=== PATIENT | male | born 1985 | race Caucasian/White ===

== ENCOUNTER 2017-01-22 06:25 | Inpatient (IN) ==
--- NOTE | 2017-01-21 17:13 | Discharge Summary ---
<Corazon Valderrama - Last Filed: 01/21/17 17:09> Date of Encounter: 01/21/17 - Discharge Diagnosis (1) DDH (developmental dysplasia of the hip) Priority: Primary Status: Chronic (2) Osteoarthritis of right hip Priority: Primary Status: Chronic Qualifiers: Osteoarthritis type: resulting from hip dysplasia Qualified Code(s): M16.31 - Unilateral osteoarthritis resulting from hip dysplasia, right hip (3) Hip pain, right Priority: Primary Status: Chronic (4) HTN (hypertension) Priority: Secondary Status: Chronic Qualifiers: Hypertension type: unspecified Qualified Code(s): I10 - Essential (primary ) hypertension (5) Tobacco use Priority: Secondary Status: Chronic - Discharge Medications Home Medications: Aspirin Enteric Coated [Aspirin EC] 325 mg PO DAILY 21 Days #21 tablet. [Rx] OxyCODONE Immed Rel [Roxicodone 5 MG] 5 mg PO Q6HR PRN 7 Days #28 tablet [Rx] Amlodipine Besylate 10 mg PO HS 01/22/17 [History] Losartan/Hydrochlorothiazide [Hyzaar 100-25 Tablet] 1 tab PO HS 01/22/17 [ History] Multivitamin [One Daily Essential] 1 tab PO HS 01/22/17 [History] Allergies/Adverse Reactions: 3 Allergy/AdvReac Type Severity Reaction Status Date / Time No Known Allergies Allergy Verified 01/22/17 06:59 Primary care physician: PCP NONE - Patient Status Disposition: Home Health Service Condition: Good - Discharge Instructions Follow Up With: NONE,PCP [Primary Care Provider] - - Hospital Course Hospital course: Mr. Guerrier is a 32 year old male - Time Spent with Patient Total time spent providing and/or coordinating discharge services: - VTE Documentation of Mechanical Device: Venous foot pump, device <Alistair Benson - Last Filed: 01/23/17 06:20> Date of Encounter: 01/23/17 Time of Encounter: 06:19 - Discharge Diagnosis (1) Morbid obesity with BMI of 40.0-44.9, adult Priority: Secondary Status: Chronic (2) DDH (developmental dysplasia of the hip) Priority: Primary Status: Chronic (3) Osteoarthritis of right hip Priority: Primary Status: Chronic Qualifiers: Osteoarthritis type: resulting from hip dysplasia Qualified Code(s): M16.31 - Unilateral osteoarthritis resulting from hip dysplasia, right hip (4) Hip pain, right Priority: Primary Status: Chronic (5) HTN (hypertension) Priority: Secondary Status: Chronic Qualifiers: Hypertension type: unspecified Qualified Code(s): I10 - Essential (primary ) hypertension (6) Tobacco use Priority: Secondary Status: Chronic (7) Status post total hip replacement, right Priority: Primary Status: Acute Primary care physician: PCP NONE - Patient Status Functional capacity at discharge: uses cane/walker Overall status at discharge: patient is progressing back to baseline - Hospital Course Hospital course: Mr. Guerrier is a 32 year old male Status post right total hip replacement The patient had an uneventful postoperative course. They received antibiotics and physical therapy and were discharged in stable condition. There will follow -up in the office in 2 weeks. - Time Spent with Patient Total time spent providing and/or coordinating discharge services:
--- NOTE | 2017-01-21 17:16 | Physician Discharge Referral ---
Home Health/Hosp Referral Info Transfer to: Home Health Attending Provider: Dr. Alistair Benson - Diagnosis (1) DDH (developmental dysplasia of the hip) Priority: Primary Status: Chronic (2) Osteoarthritis of right hip Priority: Primary Status: Chronic (3) Hip pain, right Priority: Primary Status: Chronic (4) HTN (hypertension) Priority: Secondary Status: Chronic (5) Tobacco use Priority: Secondary Status: Chronic (6) Status post total hip replacement, right Priority: Primary Status: Acute - Respiratory Orders Smoking Cessation: Smoking cessation has been advised. For more information, call the [place] Tobacco Quit Line at 9-953-DZUZ-NOW. - Dressing/Wound Care Site: right hip Type of Dressing/Treatments w/Frequency: Opsite placed. Keep dressing intact until first follow up appointment. If > 50% saturated, notify office, remove dressing and place appropriate dressing back in place. Dressing is water resistant, not water-proof. OK to shower, but do not get dressing wet. - Diet/Nutrition Diet/Nutrition Orders: Regular - Activity Activity: List: Total Hip replacement Precautions Apply cold therapy 3-6x/day for 20 minutes at a time. Encourage ambulation throughout the day and incentive spirometer 10x/hour. Elevate affected extremity as tolerated. Brace: Wear hip abduction pillow when laying/sleeping - Services Needed Following services are medically necessary services: Nursing, Home Health Aide, Physical Therapy, Occupational Therapy - Transfer Medications Prescriptions: OxyCODONE Immed Rel [Roxicodone 5 MG] 5 mg PO Q6HR PRN 7 Days #28 tablet PRN Reason: Pain Aspirin Enteric Coated [Aspirin EC] 325 mg PO DAILY 21 Days #21 tablet. Home Medications: Aspirin Enteric Coated [Aspirin EC] 325 mg PO DAILY 21 Days #21 tablet. [Rx] OxyCODONE Immed Rel [Roxicodone 5 MG] 5 mg PO Q6HR PRN 7 Days #28 tablet [Rx] Certification: Further, I certify that my clinical findings support that this patient is homebound (i.e. absences from home require considerable and taxing effort and are for medical reasons or mormon services or infrequently or short duration when for other reasons) because: Homebound Reason: Post-surgery restriction and or conditions limit ability to leave home Attestation: My signature below is to certify that this patient is under my care and that I, or nurse practitioner, or a physician press assistant and feeder working with me, has a face-to- face encounter with this patient.
[2017-01-22] MEDS ORDERED: Albuterol 2.5 MG/3 ML NEBULIZER ONE (06:40)
--- NOTE | 2017-01-22 06:50 | History & Physical Report ---
Date of Encounter: 01/22/17 Time of Encounter: 06:50 24 Hour HP Update - Instructions Instructions: If the History and Physical is less than 30 days old and was completed prior to A.M. admission and or procedure and has NOT been updated on calendar day of procedure please complete this update prior to performing procedure. - Update Patient reports changes in Medical Condition: No Changes in examination, assessment, or condition: No Changes in Medication: No Preop tests/diagnostics Reviewed: Yes Surgery Remains Indicated: Yes Consent for Planned Operative Procedure(s) Verified: Yes - Pre-Operative Checklist Preoperative Checklist Indicated: No Prophylactic Antibiotic Ordered: Yes Is VTE Prophylaxis Indicated?: Yes
[2017-01-22] MEDS ORDERED: Albuterol 2.5 MG/3 ML NEBULIZER IH ONE (06:53)
[2017-01-22] MEDS ORDERED: CeFAZolin Syr 3,000MG/30 ML 3,000 MG/30 ML SYRINGE IVPB ONE (06:53)
[2017-01-22] MEDS ORDERED: Famotidine 20 MG/2 ML VIAL IVP ONE (06:59)
[2017-01-22] MEDS ORDERED: Bupivacaine/Clonidine Syringe 1 EACH SYRINGE ONE (07:00)
[2017-01-22] MEDS ORDERED: Ethanol\\Acetic Acid\\Na Ace\\Ben 1,000 ML IRRIG.SOLN IR ONE (07:00)
[2017-01-22] MEDS ORDERED: Ringers Solution, Lactated 1,000 ML IVC SCH ×2 (07:00→11:02)
--- NOTE | 2017-01-22 07:02 | Anesthesia Evaluation PreOp ---
Date of Encounter: 01/22/17 Time of Encounter: 06:55 - Past History Planned Operation: Rt THR Cardiac History: Denies any Significant Hx Pulmonary History: Smoker [employer] History: Denies Any Significant HX Other Medical History: Renal (CKD), Other (Morbid Obesity) Anesthesia History: No Prior Anesthetic Complications Alcohol Use: none Drug use: none Medications and Allergies Aspirin Enteric Coated [Aspirin EC] 325 mg PO DAILY 21 Days #21 tablet. [Rx] OxyCODONE Immed Rel [Roxicodone 5 MG] 5 mg PO Q6HR PRN 7 Days #28 tablet [Rx] Amlodipine Besylate 10 mg PO HS 01/22/17 [History] Losartan/Hydrochlorothiazide [Hyzaar 100-25 Tablet] 1 tab PO HS 01/22/17 [ History] Multivitamin [One Daily Essential] 1 tab PO HS 01/22/17 [History] 3 Allergy/AdvReac Type Severity Reaction Status Date / Time No Known Allergies Allergy Verified 01/22/17 06:59 - Meds/Allergy Pre-op Review Medications Reviewed: Yes Allergies Reviewed: Yes Beta Blockers on Current Med List: No Anesthesia Results - Labs Laboratory Tests 01/02/17 01/02/17 01/02/17 16:35 16:35 16:37 Hgb 14.4 Hct 43.6 Plt Count 414 H PT 11.6 INR 1.1 APTT 30.3 Sodium 142 Potassium 3.2 L BUN 15 Creatinine 1.30 H Anesthesia Exam O2 Sat Height 1.75 m Height 1.75 m Weight 122.924 kg Weight 122.924 kg O2 Sat by Pulse Oximetry 97 Vital Signs Temp Pulse Resp BP Pulse Ox 98.5 F 99 18 135/83 97 01/22/17 06:48 01/22/17 06:48 01/22/17 06:48 01/22/17 06:48 01/22/17 06:48 Height: 5'9 Weight: 270 lbs NPO (# of Hours): MN Pain Scale: 0 - HEENT Pupil (Motor): Pupils equal, EOMI Mallampati: II Teeth: Normal Oral Opening: Greater than 3 - [employer] LOC: Oriented [employer] Motor: Normal RUE, Normal LUE, Normal RLE, Normal LLE, Normal Face [employer] Sensory: Normal: RUE, LUE, RLE, LLE, Face - Cardiac Rhythm: Regular Murmur: None JVD: No Carotid Bruit: No - Pulmonary Breath Sounds: bilateral Clear Respiratory Effort: Symmetrical Anesthesia Assess/Plan ASA Score: 3 ([place] Tobacco) Modified [place] Scale for Level of Consciousness: Cooperative, oriented, and tranquil Anesthetic Plan: General, Regional Monitoring Plan: Standard Monitors Recovery Plan: PACU (Discussed GA, RA, agrees to proceed)
[2017-01-22] MEDS ORDERED: *HR* HYDROmorphone (PF) 1 MG/ML SYRINGE IVP PRN (07:45)
[2017-01-22] MEDS ORDERED: *HR* Meperidine 25 MG/ML SYRINGE IVP PRN (07:45)
[2017-01-22] MEDS ORDERED: Naloxone 0.4 MG/ML INJ IVP PRN ×2 (07:45→11:02)
[2017-01-22] MEDS ORDERED: *HR* Morphine 2 MG/ML SYRINGE IVP PRN (07:45)
[2017-01-22] MEDS ORDERED: *HR* Promethazine 25 MG/ML VIAL IVP PRN (07:45)
[2017-01-22] MEDS ORDERED: Ondansetron 4 MG/2 ML VIAL IVP PRN ×2 (07:45→11:02)
--- NOTE | 2017-01-22 07:49 | Anesthesia Procedures ---
Date of Encounter: 01/22/17 Time of Encounter: 07:30 Procedures: Anesthesia - Nerve Block Procedure Date: 01/22/17 Time: 07:30 Allergies/Adv Reactions: Allergies Allergy/AdvReac Type Severity Reaction Status Date / Time No Known Allergies Allergy Verified 01/22/17 06:59 Surgical Procedure: Right Robotic Total Hip Checklist: Correct Patient Identifier, Correct procedure, History checked Correct side: Right Blood Thinner: No Monitor Applied: EKG, BP, Pulse Oximetry Supplemental Oxygen via Nasal Cannula (L/min): 2 Sedation: Versed (mg): 5 Sedation: Fentanyl (mcg): 100 Indication: Post Op Analgesia Pre-op Neuro Deficits: No Block Type: Other (Facsia Iliaca) Catheter placed: No Sterile Technique: Yes Ultrasound used: Yes Anatomy identified: Yes Visual spread of Local: Yes Blood on Needle Aspiration: No Smooth Injection of Local: Yes Pain with Injection of Local: No Prep: Chlorhexadine Needle: 22 x 50 mm Stimuplex Local: 0.25% Bupivicaine w/Clonidine 20 mcg/cc Volume (cc): 60 Number of Attempts: 1 Complications: None/effective block Vitals: VSS throughout. See nursing documentation. Comments: x1 attempt. Patient tolerated well. Verbal order Dr Benson for post op pain management.
[2017-01-22] MEDS ORDERED: *HR* Propofol 200 MG/20 ML VIAL IVP ONE ×2 (08:18)
[2017-01-22] MEDS ORDERED: Lidocaine -MPF 4% 5 ML AMPUL ONE (08:18)
[2017-01-22] MEDS ORDERED: Ondansetron 4 MG/2 ML VIAL ONE (08:18)
[2017-01-22] MEDS ORDERED: *HR* Succinylcholine 200 MG/10 ML VIAL IVP ONE (08:18)
[2017-01-22] MEDS ORDERED: *HR* Rocuronium Bromide 50 MG/5 ML VIAL ONE (08:18)
[2017-01-22] MEDS ORDERED: *HR* FentaNYL (PF) 100 MCG/2 ML VIAL ONE ×2 (08:18→09:04)
[2017-01-22] MEDS ORDERED: *HR* Phenylephrine 10 MG/ML VIAL ONE (08:18)
[2017-01-22] MEDS ORDERED: *HR* Midazolam HCl 5 MG/5 ML VIAL IVP ONE (08:18)
[2017-01-22] MEDS ORDERED: Lidocaine -MPF 2% 2 ML VIAL ONE (08:18)
[2017-01-22] MEDS ORDERED: Dexamethasone 4 MG/ML VIAL ONE (08:18)
[2017-01-22] MEDS ORDERED: *HR* HYDROmorphone 2 MG/ML SYRINGE ONE (08:39)
--- NOTE | 2017-01-22 09:25 | Orthopedic History & Physical ---
Date of Encounter: 01/22/17 Time of Encounter: 07:00 Assessment and Plan (1) Morbid obesity with BMI of 40.0-44.9, adult Current visit: Yes Status: Chronic (2) DDH (developmental dysplasia of the hip) Current visit: No Status: Chronic (3) Osteoarthritis of right hip Current visit: No Status: Chronic Qualifiers: Osteoarthritis type: resulting from hip dysplasia Qualified Code(s): M16.31 - Unilateral osteoarthritis resulting from hip dysplasia, right hip (4) Hip pain, right Current visit: No Status: Chronic (5) HTN (hypertension) Current visit: No Status: Chronic Qualifiers: Hypertension type: unspecified Qualified Code(s): I10 - Essential (primary ) hypertension (6) Tobacco use Current visit: No Status: Chronic (7) Status post total hip replacement, right Current visit: No Status: Acute History of Present Illness HPI: Mr. Guerrier is a 32 year old male With a long history of right hip pain. Patient was diagnosed with development of dysplasia of the right hip as a child. Pain over the last few months has gotten worse. Has radiated to his knee and his back. He is a cane for the past 2 years take aspirin Tylenol for the discomfort has complains of instability. He denies any associated numbness or tingling. Past medical history is hypertension. Past surgical history is none Rotations: Losartan potassium 25 mg a day Amlodipine 10 mg a day No known drug allergies Functional assessment: No major risk factors, minor risk factors obesity hypertension activity limited by right hip. Physical exam Well-nourished well-developed no acute distress Antalgic gait Right lower extremity Limited flexion-extension rotation of the hip Full flexion and extension no instability of the knee Negative straight leg raise Neurovascular intact Length discrepancy right shorter than left xray reviewed show developmental dysplasia right hip with shortening of the right lower extremity Assessment and plan patient with a long history of right hip abnormality from childhood. Recommendation for right total hip replacement. We reviewed the risks and benefits as well as recovery. All questions were answered. The patient agreed to this treatment plan and appeared to understand the plan is reviewed. Specifically related to nerve related issues from lengthening. Past Med Surg Social Fam HX - Past Medical History Medical history: hypertension, other - Past Surgical History Surgical History: orthopedic, other - Social History Smoking Status: Current every day smoker Packs per day: 0.5 Alcohol use: occasionally Drug use: none Medications and Allergies Aspirin Enteric Coated [Aspirin EC] 325 mg PO DAILY 21 Days #21 tablet. [Rx] OxyCODONE Immed Rel [Roxicodone 5 MG] 5 mg PO Q6HR PRN 7 Days #28 tablet [Rx] Amlodipine Besylate 10 mg PO HS 01/22/17 [History] Losartan/Hydrochlorothiazide [Hyzaar 100-25 Tablet] 1 tab PO HS 01/22/17 [ History] Multivitamin [One Daily Essential] 1 tab PO HS 01/22/17 [History] 3 Allergy/AdvReac Type Severity Reaction Status Date / Time No Known Allergies Allergy Verified 01/22/17 06:59 All Systems Reviewed: A 10-system review of systems was performed and is negative for pertinent findings except as documented above in the HPI. Physical Exam - Constitutional Vitals: Temp Pulse Resp BP Pulse Ox 98.5 F 104 18 147/93 98 01/22/17 06:48 01/22/17 07:31 01/22/17 06:48 01/22/17 07:31 01/22/17 07:31 Results - Labs Labs: All other labs normal. - VTE Documentation of Mechanical Device: Venous foot pump, device
--- NOTE | 2017-01-22 09:38 | Orthopedic Operative Note ---
Date of procedure: 01/22/17 Pre-op diagnosis: Developmental dysplasia right hip Post-op diagnosis: same Procedure: Procedure: Right Total Hip Replacment robotic-assisted Estimated blood loss: 400 cc Hardware: Metal and polyethylene replacement. [place] DM Cup: 58 cup Femoral size stem 9 Head: -4 head with Elaine Procedural Notes: Severe abnormality of the femoral head acetabular socket shallow, procedure performed with robotic assistance. Operative procedure: The patient was brought to the operating room and placed on the operating room table. After general anesthesia was administered the patient was placed in the lateral decubitus position with the operative leg up. All pressure points were padded appropriately and the head was stabilized in the neutral position. The operative extremity was prepped and draped in the sterile surgical fashion patient received IV antibiotic prior to skin incision. 3 Steinmann pins were placed in the iliac crest 3 cm proximal to the anterior superior iliac spine this was for the robotic-assisted sensor. This was done through a small 2 cm incision. A standard posterior approach is made to the operative hip, the incision was made through the skin and subcutaneous tissue hemostasis was obtained with Bovie cautery. Using careful sharp dissection the fascia was identified and incised exposing the external rotators. The femoral checkpoint was placed leg length was measured at this time utilizing robotic assistance. Found to be 2.6 mm short on the right as compared to the left. With decrease of 9 mm offset. The external rotators were released off the greater trochanter and tagged with #2 FiberWire suture. The capsule was T'd open and the hip was brought into internal rotation. Patient noted to have severe abnormal changes femoral head. The femoral neck cut was made at the appropriate level roughly evident proximal to the lesser trochanter aced on preoperative templating. An anterior capsulotomy was performed for the anterior retractor. Soft tissues removed from the acetabulum. Patient noted to have grade a shallow acetabulum. The acetabulum checkpoint was placed confirmed. The acetabulum was then mapped with robotic assistance. Based on the preoperative plan the acetabulum was reamed in one step with a 57 reamer. The 58 acetabulum was impacted with robotic assistance and 43 degrees of abduction and 20 degrees of anteversion. The hip was brought back in to internal rotation and prepared with the box toe stitcher followed by the canal finder followed by the reaming process to a size 9 mm broaching process in 20 degrees anteversion. It was broached up to the appropriate size 9. Trial reduction revealed leg lengths close to normal. The femoral implant was impacted in place in 20 degrees of anteversion. Trial reduction found the hip to be stable with -4 head and Elaine. The trials were removed and the real implants were impacted in place. The hip was reduced, patient had robotic confirmed leg length of 2 mm longer than the contralateral side. The hip had excellent stability with forward flexion to 90 degrees adduction of 30 degrees and internal rotation of 60 degrees. The hip had no shuck. The hip was noted to be tighter than preop but expected based on the lengthening of almost 2-1/2 cm. The hips after 2 minutes with a Betadine saline solution. It was irrigated out with 2 L of pulse irrigation. The checkpoints were removed, Steinmann pins were removed. The pain incision and the hip were closed by the PA. The deep tissue was irrigated and closed deep with #1 PDS suture superficially with 0 PDS suture and skin was closed with Dermabond and zip tie. The patient was placed in a sterile dressing and abduction pillow. The patient was extubated and transferred to the recovery room in stable condition. Anesthesia: CORONA Surgeon: Alistair Benson Lining Parts Sewer: Corazon Valderrama Condition: stable Disposition: PACU
[2017-01-22] MEDS ORDERED: Neostigmine Methylsulfate 3 MG/3 ML SYRINGE ONE (09:48)
[2017-01-22] MEDS ORDERED: Ketorolac 30 MG/ML VIAL IVP ONE (10:03)
[2017-01-22 10:17] LABS: Hematocrit 39.3 % (37.5-50.1); Hemoglobin 12.7 g/dL (12.9-16.9)
--- NOTE | 2017-01-22 10:46 | Anesthesia Evaluation Post Op ---
Date of Encounter: 01/22/17 Time of Encounter: 10:45 - Vital Signs Vital Signs: Vital Signs/O2 Sat/Glucose, Most Current Temp Pulse Resp BP Pulse Ox 01/22/17 10:44 97.4 F L 102 20 155/96 100 01/22/17 10:34 97.4 F L 104 26 141/85 100 01/22/17 10:24 97.4 F L 93 12 137/88 99 01/22/17 10:22 12 95 01/22/17 10:14 96 20 130/81 100 01/22/17 10:04 101 18 118/85 91 01/22/17 09:54 97.6 F 87 14 110/66 93 01/22/17 07:31 104 147/93 98 01/22/17 06:48 98.5 F 99 18 135/83 97 - Lungs Lungs: Clear Ascult./Percussion - Airway Airway: Non-obstructed - Cardiovascular Regular Rate - Mental Status Mental Status: Alert & Oriented, Answers Appropriately - Pain Pain Scale: 2 - Nausea Vomiting Nausea Vomiting: Not Present - Hydration Hydration: Ice chips - Discharge PostOp Status: Transfer Patient to floor
[2017-01-22] MEDS ORDERED: *HR* OxyCODONE Immed Rel 5 MG TABLET PO PRN (11:02)
[2017-01-22] MEDS ORDERED: Sennosides 8.6 MG TABLET PO PRN (11:02)
[2017-01-22] MEDS ORDERED: MOM Conc 10 ML UD.LIQ PO PRN (11:02)
[2017-01-22] MEDS ORDERED: Temazepam 15 MG CAPSULE PO PRN (11:02)
[2017-01-22] MEDS: *HR* HYDROmorphone (PF) 1 MG/ML SYRINGE IVP PRN ×4 (11:13→19:30)
[2017-01-22] MEDS ORDERED: Ibuprofen 800 MG TABLET PO PRN (11:42)
--- NOTE | 2017-01-22 11:48 | Event Note ---
Date of Encounter: 01/22/17 Time of Encounter: 11:30 Patient s/p Right THR robotic Dr. Benson from this morning. Patient experiencing significant difficulty with pain control. Patient seen and examined at bedside with family in room. Patient on BIPAP. Patient c/o aching intense pain to mid right thigh "femur" per patient. Admits to intermittent right toes tingling and "asleep" feeling. Patient admits to getting block. On exam patient alert and oriented. Incision intact with honeycomb opsite overlying with no drainage. No ecchymosis, erythema, or petechiae noted to RLE. Tenderness to palpation of anterior thigh. Patient has motion to right knee intact. Right toes, foot, and ankle motion intact. Neurovascularly intact. Patient wearing hip abduction pillow as directed. Suspect muscle spasm to be primary culprit of intensifying pain as patient's leg length discrepancy was improved with today's surgery. Will trial Cyclobenzaprine, add Ibuprofen, Acetaminophen, and Lidocaine patches to area of intense pain to improve patient comfort.
[2017-01-22] MEDS: Ascorbic Acid 500 MG TABLET PO SCH ×2 (11:55→15:12)
[2017-01-22] MEDS: Multivit/Ca/Min/Fe/FA 1 TAB TABLET PO SCH (11:55)
[2017-01-22] MEDS: *HR* OxyCODONE Immed Rel 5 MG TABLET PO PRN ×3 (12:12→22:04)
[2017-01-22] MEDS ORDERED: Acetaminophen IV 1,000 MG/100 ML INFUS..BTL IVPB ONE (13:08)
[2017-01-22] MEDS: Nicotine 14 MG PATCH.TD24 TD SCH (13:37)
[2017-01-22] MEDS: CeFAZolin Syr 3,000MG/30 ML 3,000 MG/30 ML SYRINGE IVPB SCH (17:44)
[2017-01-22] MEDS ORDERED: *HR* Enoxaparin 30 MG/0.3 ML SYRINGE SQ SCH (18:00)
[2017-01-22] MEDS: *HR* Enoxaparin 30 MG/0.3 ML SYRINGE SQ SCH (18:32)
[2017-01-22] MEDS ORDERED: NON-FORMULARY MEDICATION 1 EACH EACH (Multivitamin [One Daily Essential] 1 TAB) PO SCH (21:00)
[2017-01-22] MEDS ORDERED: Losartan/HCTZ 50-12.5 TABLET PO SCH (21:00)
[2017-01-22] MEDS ORDERED: amLODIPine 5 MG TABLET PO SCH (21:00)
[2017-01-23] MEDS: CeFAZolin Syr 3,000MG/30 ML 3,000 MG/30 ML SYRINGE IVPB SCH (00:49)
[2017-01-23] MEDS: *HR* HYDROmorphone (PF) 1 MG/ML SYRINGE IVP PRN (00:50)
--- NOTE | 2017-01-23 06:21 | Orthopedics Progress Note ---
Date of Encounter: 01/23/17 Time of Encounter: 06:20 - Assessment and Plan (1) Morbid obesity with BMI of 40.0-44.9, adult Current Visit: Yes Status: Chronic (2) DDH (developmental dysplasia of the hip) Current Visit: No Status: Chronic (3) Osteoarthritis of right hip Current Visit: No Status: Chronic Qualifiers: Osteoarthritis type: resulting from hip dysplasia Qualified Code(s): M16.31 - Unilateral osteoarthritis resulting from hip dysplasia, right hip (4) Hip pain, right Current Visit: No Status: Chronic (5) HTN (hypertension) Current Visit: No Status: Chronic Qualifiers: Hypertension type: unspecified Qualified Code(s): I10 - Essential (primary ) hypertension (6) Tobacco use Current Visit: No Status: Chronic (7) Status post total hip replacement, right Current Visit: No Status: Acute Subjective Interval history: Patient was seen this morning doing well without complaints. Afebrile vital signs stable. Operative extremity: Neurovascularly intact Dressing clean dry and intact Calves nontender Assessment and plan: Continue with postoperative care Hematocrit 39 discharged today Objective Vital signs: Vital Signs Temp Pulse Resp BP Pulse Ox 01/23/17 04:06 98.5 F 98 17 144/76 97 01/22/17 23:38 98.2 F 100 16 123/77 96 01/22/17 18:58 98.3 F 109 16 125/77 96 01/22/17 15:29 98.3 F 101 16 142/91 97 01/22/17 12:54 98.3 F 92 18 159/89 96 01/22/17 12:14 98.2 F 103 18 159/103 93 01/22/17 11:32 99 01/22/17 11:30 98.5 F 95 17 149/96 99 01/22/17 11:00 98.6 F 96 29 153/85 98 01/22/17 10:44 97.4 F L 102 20 155/96 100 01/22/17 10:34 97.4 F L 104 26 141/85 100 01/22/17 10:24 97.4 F L 93 12 137/88 99 01/22/17 10:22 12 95 01/22/17 10:14 96 20 130/81 100 01/22/17 10:04 101 18 118/85 91 01/22/17 09:54 97.6 F 87 14 110/66 93 01/22/17 07:31 104 147/93 98 01/22/17 06:48 98.5 F 99 18 135/83 97 Intake and Output 01/22/17 01/22/17 01/23/17 15:59 23:59 07:59 Intake Total 700 / 700 610 / 610 1100 / 1100 Output Total 400 / 400 Balance 300 / 300 610 / 610 1100 / 1100 Intake: IV Fluids 30 / 30 Ancef Syringe 3,000 MG/30 ML 3, 30 / 30 000 mg In 30 ml @ 200 mls/hr IVPB Q8HR IRENE Rx#:[id number] Oral 700 / 700 580 / 580 1100 / 1100 Output: Urine 0 / 0 Estimated Blood Loss 400 / 400 Other: # Voids 1 2 - Labs CBC & BMP: 01/22/17 10:08 Labs: Abnormal lab results Hgb 12.7 g/dL (12.9-16.9) L 01/22/17 10:08 - VTE Documentation of Mechanical Device: Venous foot pump, device Consult Discharge Plan - Plan Referrals: NONE,PCP [Primary Care Provider] -
[2017-01-23] MEDS: *HR* Enoxaparin 30 MG/0.3 ML SYRINGE SQ SCH (06:40)
[2017-01-23] MEDS: *HR* OxyCODONE Immed Rel 5 MG TABLET PO PRN (06:40)
[2017-01-23 07:25] LABS: Hematocrit 37.5 % (37.5-50.1); Hemoglobin 12.4 g/dL (12.9-16.9)
[2017-01-23 07:38] LABS: BUN/Creatinine Ratio 12 (6-26); Blood Urea Nitrogen 11 mg/dL (8-26); Calcium 8.7 mg/dL (8.6-10.8); Carbon Dioxide 26 mEq/L (19-29); Chloride 100 mEq/L (98-109); Glucose 134 mg/dL (70-99); Osmolality,Calculated 287 (280-300); Potassium 3.4 mEq/L (3.5-4.5); Sodium 138 mEq/L (136-145); eGFR For African Americans > 60 (> 60); eGFR For Non-African Americans > 60 (> 60)
[2017-01-23] MEDS: Ascorbic Acid 500 MG TABLET PO SCH (08:02)
[2017-01-23] MEDS: Multivit/Ca/Min/Fe/FA 1 TAB TABLET PO SCH (08:02)
[2017-01-23] MEDS: Nicotine 14 MG PATCH.TD24 TD SCH (08:02)
[2017-01-23 11:20] VITALS: BP 152/81
== END 2017-01-23 14:20 | disposition home health service (06) | DRG 470 ==
LOC: SAMDAY 06:25 → 3NENU 10:53
PROVIDERS: ADMIT Orthopaedic Surgery; ATTEND Orthopaedic Surgery